=== PATIENT | female | born 1965 | race Caucasian/White ===

== ENCOUNTER 2016-06-19 20:37 | Emergency (ER) | payer BC ==
--- NOTE | 2016-06-19 21:18 | ERPHSYRPT ---
- History of Present Illness Time Seen by Provider: 06/19/16 21:11 Source: patient, family Exam Limitations: no limitations Patient Subjective Stated Complaint: pt states she fell off of a chair approx 1 week ago and has bruising to her rt lower lg and rt breast Triage Nursing Assessment: pt alert and oriented, asnwers questions approp. pt ambulatory with steady gait noted. respirations nonlbored with lungs cta. purple bruising noted to anterior rt lower leg and rt breast. Physician History: pt has bruise of RLE and wishes x-ray as it still has some pain when walking and also has right rib pain under breast which also is bruised where she fell increased by breathing; no other trauma per pt but saw quick care last week ; breast has ecchymosis but no fluctuance to suggest fluid collection or hematoma ; Method of Injury: fell Occurred: last week Quality: aching, throbbing Severity of Pain-Max: moderate Severity of Pain-Current: moderate Lower Extremities Pain: leg: right Modifying Factors: Improves With: immobilization, movement, rest Associated Symptoms: none Allergies/Adverse Reactions: No Known Drug Allergies Allergy (Unverified 11/27/14 13:25) Home Medications: Lisinopril 20 mg [Zestril 20 MG] 20 mg PO DAILY 11/27/14 [History] Omeprazole 20 MG [Prilosec 20 mg] 20 mg PO DAILY 11/27/14 [History] Hydrocodone Bit/Acetaminophen [Hydrocodon-Acetaminoph 7.5-325] 1 each PO BID PRN PRN 06/19/16 [History] Hx Tetanus, Diphtheria Vaccination/Date Given: Yes (unknown) Hx Influenza Vaccination/Date Given: No Hx Pneumococcal Vaccination/Date Given: No Immunizations Up to Date: Yes - Review of Systems Constitutional: No Fever, No Chills Eyes: No Symptoms Ears, Nose, & Throat: No Symptoms Respiratory: No Cough, No Dyspnea Cardiac: No Chest Pain, No Edema, No Syncope Abdominal/Gastrointestinal: No Abdominal Pain, No Nausea, No Vomiting, No Diarrhea Genitourinary Symptoms: No Dysuria Musculoskeletal: Fall, Injury, No Back Pain, No Neck Pain Skin: No Rash Neurological: No Dizziness, No Focal Weakness, No Sensory Changes Psychological: No Symptoms Endocrine: No Symptoms All Other Systems: Reviewed and Negative - Past Medical History Pertinent Past Medical History: Yes Cardiac History: Hypertension Musculoskeletal History: Degenerative Disk Disease - Past Surgical History Past Surgical History: Yes Female Surgical History: Tubal Ligation Other Surgical History: uterine ablation - Social History Smoking Status: Never smoker Exposure to second hand smoke: No Drug Use: none Patient Lives Alone: No - Nursing Vital Signs Nursing Vital Signs: Initial Vital Signs Temperature 98.5 F Temperature Source Oral Pulse Rate 78 Respiratory Rate 18 Blood Pressure [] 121/65 Pain Intensity 5 - Physical Exam General Appearance: no apparent distress, alert Eyes, Ears, Nose, Throat Exam: moist mucous membranes Neck Exam: non-tender, supple Cardiovascular/Respiratory Exam: chest non-tender, normal breath sounds, regular rate/rhythm, no respiratory distress Gastrointestinal/Abdominal Exam: non-tender, guarding Back Exam: normal inspection, No vertebral tenderness Hips Exam: bilateral: non-tender, normal inspection, normal range of motion, no evidence of injury Legs Exam: right leg: bone tenderness, ecchymosis, pain, left leg: non-tender, normal inspection, normal range of motion, no evidence of injury Knees Exam: bilateral knee: non-tender, normal inspection, normal range of motion, no evidence of injury Ankle Exam: bilateral ankle: non-tender, normal inspection, normal range of motion, no evidence of injury Foot Exam: bilateral foot: non-tender, normal inspection, normal range of motion , no evidence of injury DTR - Lower Extremities Exam: knee (R): 2+, knee (L): 2+, ankle (R): 2+, ankle ( L): 2+ Neuro/Tendon Exam: normal sensation, normal motor functions, normal tendon functions, no evidence tendon injury Mental Status Exam: alert, oriented x 3, cooperative Skin Exam: normal color, warm, dry SpO2 Interpretation: normal SpO2: 98 Oxygen Delivery: Room Air Comments: calves nontender bilaterally with 43 cm circ equal bilateral - and neg holmans bilaterally; discussed minimal risk of dvt as complication and no outward signs at this time and pt agrees with foregoing US at this time with minimal if any indication and accepts this small risk and is advised to return if any increased swelling or other changes meantime; - Course Nursing assessment & vital signs reviewed: Yes - Radiology Exams Chest X-ray Interpretation: Reviewed by me (interstitial changes) Lower Leg X-ray Interpretation: Reviewed by me, Other (STS and DJD ) Ordered Tests: Active Orders 24 hr Category Date Time Status CHEST 2 VIEWS (PA AND LAT) Stat Exams 06/19/16 21:20 Taken LOWER LEG Stat Exams 06/19/16 21:20 Taken CBC W DIFF Stat Lab 06/19/16 22:08 Completed CMP Stat Lab 06/19/16 22:08 Completed UA W/ MICROSCOPIC Stat Lab 06/19/16 22:20 Completed Lab/Rad Data: Laboratory Result Diagrams 06/19/16 22:08 06/19/16 22:08 Laboratory Results 06/19/16 06/19/16 06/19/16 Range/Units 22:20 22:08 22:08 WBC 8.6 (4.0-10.5) K/mm3 RBC 3.86 L (4.1-5.4) M/mm3 Hgb 11.4 L (12.0-16.0) gm/dl Hct 36.5 (35-47) % MCV 94.6 (78-100) fl MCH 29.5 (26-32) pg MCHC 31.2 L (32-36) g/dl RDW 14.3 H (11.5-14.0) % Plt Count 274 (150-450) K/mm3 MPV 9.3 (6-9.5) fl Gran % 74.7 H (36.0-66.0) % Lymphocytes % 17.1 L (24.0-44.0) % Monocytes % 6.8 (0.0-12.0) % Eosinophils % 0.9 (0.00-5.0) % Basophils % 0.5 (0.0-0.4) % Basophils # 0.04 (0-0.4) Sodium 143 (136-145) mEq/L Potassium 3.8 (3.5-5.1) mEq/L Chloride 105 (98-107) mEq/L Carbon Dioxide 29.1 (21-32) mEq/L Anion Gap 12.3 (5-15) MEQ/L BUN 18 (9-20) mg/dL Creatinine 0.89 (0.55-1.30) mg/dl Estimated GFR > 60 ML/MIN Glucose 99 (70-110) MG/DL Calcium 8.6 (8.5-10.1) mg/dL Total Bilirubin 0.2 (0.2-1.0) mg/dL AST 19 (15-37) U/L ALT 23 (12-78) U/L Alkaline Phosphatase 87 (46-116) U/L Serum Total Protein 7.1 (6.4-8.2) gm/dL Albumin 3.5 (3.4-5.0) g/dL Ur Collection Type CLEAN CATCH Urine Color YELLOW (YELLOW) Urine Appearance CLEAR (CLEAR) Urine pH 6.0 (5-6) Ur Specific [place] 1.010 (1.005-1.025) Urine Protein NEGATIVE (Negative) Urine Glucose (UA) NEGATIVE (NEGATIVE) mg/dL Urine Ketones NEGATIVE (NEGATIVE) Urine Nitrite NEGATIVE (NEGATIVE) Urine Bilirubin NEGATIVE (NEGATIVE) Urine Urobilinogen 0.2 (0-1) mg/dL Urine WBC (Auto) NEGATIVE (NEGATIVE) Urine RBC (Auto) MODERATE (0-5) Glenn/ul Urine Microscopic RBC 2-5 (0-2) /HPF Urine Microscopic WBC 2-5 (0-5) /HPF Ur Epithelial Cells FEW (FEW) /HPF Urine Bacteria FEW (NEGATIVE) /HPF Specimen Received 06/19/160 - Progress Progress: improved, re-examined Progress Note: 06/19/16 22:57 pt is advised of risk of DVT and of occult fx - but none seen at this time and will await rad report, declines crutches or further w/u at this time and will return meantime if not improving. Counseled pt/family regarding: diagnosis, need for follow-up, rad results - Departure Time of Disposition: 22:58 Departure Disposition: Home Clinical Impression: Contusion of right lower leg, Contusion of rib on right side Condition: Good Critical Care Time: No Instructions: Contusion Additional Instructions: although no obvious fractures are seen there may still be some and the final x- ray report wqill be available tuesday; return meantime if any concerns , increased pain or increased swelling; ; Prescriptions: Hydrocodone Bit/Acetaminophen [[place] 5-325 Tablet] 1 each PO Q4-6HPRN PRN #10 tablet PRN Reason: Pain
[2016-06-19 22:12] LABS: BASOPHIL % 0.5 % (0.0-0.4); Eosinophil % 0.9 % (0.00-5.0); Granulocytes % 74.7 % (36.0-66.0); Lymphocytes % 17.1 % (24.0-44.0); Mean Cell Volume 94.6 fl (78-100); Mean Corpuscular Hemoglobin 29.5 pg (26-32); Mean Platelet Volume 9.3 fl (6-9.5); Monocytes % 6.8 % (0.0-12.0); Platelet Count 274 K/mm3 (150-450); Red Blood Count 3.86 M/mm3 (4.1-5.4); Red Cell Distribution Width 14.3 % (11.5-14.0); White Blood Count 8.6 K/mm3 (4.0-10.5)
[2016-06-19 22:33] LABS: ALBUMIN 3.5 g/dL (3.4-5.0); ALKALINE PHOSPHATASE 87 U/L (46-116); ANION GAP 12.3 MEQ/L (5-15); BILIRUBIN,TOTAL 0.2 mg/dL (0.2-1.0); BLOOD UREA NITROGEN 18 mg/dL (9-20); CHLORIDE 105 mEq/L (98-107); Carbon Dioxide 29.1 mEq/L (21-32); Glucose 99 MG/DL (70-110); Potassium 3.8 mEq/L (3.5-5.1); SGOT/AST 19 U/L (15-37); SGPT/ALT 23 U/L (12-78); SODIUM 143 mEq/L (136-145); Total Protein 7.1 gm/dL (6.4-8.2)
[2016-06-19 22:38] VITALS: O2SAT 98
[2016-06-19 22:53] LABS: COMPLETE URINE MICROSCOPIC? YES; Collection Type CLEAN CATCH
[2016-06-19 22:54] LABS: Bacteria FEW /HPF (NEGATIVE); Epithelial Cells FEW /HPF (FEW)
[2016-06-19 23:02] VITALS: BP 126/78; PULSE 71
--- NOTE | 2016-06-20 08:32 | XRAY ---
Indication: Right-sided bruising following fall one week ago. Comparison: November 27, 2014. PA/lateral chest again demonstrates normal heart and lungs. Bony thorax intact.
--- NOTE | 2016-06-20 08:32 | XRAY ---
Indication: Lower leg bruising following fall one week ago. Comparison: None 2 views of the right lower leg demonstrates tiny anterior soft tissue calcified granulomas. No other bony, articular, or soft tissue abnormalities.
== END 2016-06-19 23:10 | disposition home or self-care (01) ==
LOC: ED 20:37
DX: S80.11XA Contusion of right lower leg, initial encounter (principal); S80.01XA Contusion of right knee, initial encounter; S20.211A Contusion of right front wall of thorax, initial encounter; W07.XXXA Fall from chair, initial encounter
CPT/HCPCS: 36415; 71020; 73590; 80053; 81000; 85025; 99283; 99284

== ENCOUNTER 2024-05-21 08:12 | Day surgery (SDC) | payer OTHER ==
--- NOTE | 2024-05-21 08:26 | HP ---
HISTORY AND PHYSICAL HISTORY OF PRESENT ILLNESS: The patient has iron-deficiency anemia. Hemoglobin was down to 8. No bloody stools. No change in bowel habits. Occasional epigastric pain. Family history of pancreatic cancer but negative for colon cancer. PAST MEDICAL HISTORY: Allergic rhinitis, hypertension, had some heartburn, back pain, had history of bulging disc, hypothyroidism, and hyperlipidemia. HOME MEDICATIONS: Hydrocodone 7.5, Claritin, omeprazole, Synthroid, and Ozempic. ALLERGIES: No known drug allergies. PAST SURGICAL HISTORY: Tonsillectomy, adenoidectomy, appendectomy, uterine ablation. She had colonoscopy in the past, had bilateral tubal in the past. SOCIAL HISTORY: No smoking, no alcohol abuse. FAMILY HISTORY: Negative for colon cancer. Father had pancreatic cancer. REVIEW OF SYSTEMS: Twelve systems reviewed. No chest pain or palpitations. Other systems negative or noncontributory as above and per preadmission questionnaire. PHYSICAL EXAMINATION: GENERAL: Height 5 feet 1 inch. BMI 33.5. HEENT: Sclerae nonicteric. NECK: No JVD. CARDIOVASCULAR: Regular rate and rhythm. RESPIRATORY: Equal excursion, nonlabored breathing. ABDOMEN: Soft. EXTREMITIES: No cyanosis or edema. NEUROLOGIC: Alert and oriented, moving all extremities symmetrically. PSYCHIATRIC: Appropriate mood and affect. RECTAL: Deferred until time of endoscopy exam. IMPRESSION: Anemia. Needs EGD and colonoscopy for further evaluation to look for GI sources. Risks explained in detail including bleeding, infection, risk of bowel injury or perforation, risk of missed or nondiagnosis or incomplete exam possibly requiring barium enema or barium swallow or other studies or procedures, risk of anesthesia or sedation, risk of bowel prep but not limited to. We will proceed with outpatient EGD, colonoscopy under MAC anesthesia for evaluation of anemia. Otherwise, continue medications for hypertension, hyperlipidemia, and thyroid disease.
[2024-05-21] MEDS: Lactated Ringers 1,000 ML IV SCH (08:28)
[2024-05-21 08:35] VITALS: RESP 16; O2SAT 100
[2024-05-21] MEDS ORDERED: propofoL IV ONE ×3 (10:23→10:45)
[2024-05-21 11:37] VITALS: BP 116/76; PULSE 65; TEMP 96.5
--- NOTE | 2024-05-22 10:47 | OP ---
SURGERY DATE/TIME: 05/21/2024 [id number] PREOPERATIVE DIAGNOSIS: History of anemia and need for upper and lower endoscopy to evaluate for sources. POSTOPERATIVE DIAGNOSIS: 1) Erosive gastritis. 2) Short segment of some salmon-pink mucosa, small finger on distal esophagus. 3) Fair limited bowel prep, right colon more liquidy stool than left. 4) Diverticulosis. 5) No signs of any large polyps, masses or obstructing lesions in the colon. 6) ASA class 2. 7) Withdrawal time was approximately 9 minutes. PROCEDURE: 1) Esophagogastroduodenoscopy with cold biopsy of the antrum for H. pylori, cold biopsy of the distal esophagus seen on pink mucosa. 2) Colonoscopy to the cecum. SURGEON: Mansoor Hutchins MD [employer] REPAIRER: NILTON Ham ANESTHESIA: MAC. ESTIMATED BLOOD LOSS: Minimal. INDICATIONS: As noted above. Consent was obtained. DESCRIPTION OF PROCEDURE AND FINDINGS: The patient was taken to the operating room. MAC anesthesia induced after official time-out for planned procedure. Bite block positioned. Videogastroscope easily passed down the esophagus through the patent pylorus to the GE junction, third and fourth portions of the duodenum. Duodenum grossly unremarkable. Back in the stomach she had erosive gastritis. There were no ulcers or no signs of any large polyps or masses, but she did have erosive gastritis. Cold biopsy obtained of the antrum for H. pylori. On retroflexion the GE junction was tight against the scope. No signs of any large hiatal hernia. The scope was straightened, pulled back into GE junction about 34 to 35 cm. There was a half-centimeter, finger level salmon-pink mucosa extending up the esophagus. Cold biopsy was taken to evaluate for Frias's versus a simple normal variation of the GE junction. Good hemostasis was noted. The remainder of the esophagus was grossly unremarkable. No sign of any mass or lesions. Attention then turned to colonoscopy. Digital rectal exam did not reveal any rectal masses. Videocolonoscope inserted and passed up through the tortuous sigmoid, descending, transverse and ascending colon. With 2 different staff members pressing on the abdomen, the scope was passed to the cecum. Appendiceal orifice and bowel well visualized. Prep overall was fair on the limited side with some liquidy stool coating the colon the right. This was irrigated and suctioned as well as possible. It was a little thick so it did not irrigate perfectly. There were, however, no signs of any large polyps, masses, or obstructing lesions on this side. The scope was carefully withdrawn. There was some diverticulosis on the left side. There were no signs of any large polyps, masses or obstructing lesions. The scope was withdrawn in about 9 minutes. The patient tolerated the procedure well. Findings discussed with family out in the waiting area. Will see her back in the office in a couple of weeks.
== END 2024-05-21 11:43 | disposition home or self-care (01) ==
LOC: SDC 08:12
PROVIDERS: ATTEND Surgery
DX: K57.30 Diverticulosis of large intestine without perforation or abscess without bleeding (principal); D64.9 Anemia, unspecified; Z80.8 Family history of malignant neoplasm of other organs or systems; K29.70 Gastritis, unspecified, without bleeding; K22.70 Barrett's esophagus without dysplasia
CPT/HCPCS: J2704